=== PATIENT | female | born 2000 | race Caucasian/White ===

== ENCOUNTER 2023-07-14 08:10 | Emergency (ER) | payer BC | END 2023-07-14 09:10 | disposition home or self-care (01) | LOC: CC.ED 08:10 | DX: S93.401A Sprain of unspecified ligament of right ankle, initial encounter (principal); Z79.899 Other long term (current) drug therapy; X50.1XXA Overexertion from prolonged static or awkward postures, initial encounter; Y93.89 Activity, other specified | CPT/HCPCS: 73610-RT; 99283 ==

== ENCOUNTER 2023-09-18 20:00 | Emergency (ER) | payer BC ==
[2023-09-18 21:23] LABS: BASOPHILS ABSOLUTE AUTO 0.02 10^3/uL (0.00-0.50); BASOPHILS PERCENT AUTO 0.2 % (0-1); HEMATOCRIT 36.2 % (37.0-47.0); HEMOGLOBIN 11.5 g/dL (12.0-16.0); IMMATURE GRAN ABSOLUTE AUTO 0.01 10^3/uL (0.00-0.49); IMMATURE GRAN PERCENT AUTO 0.1 % (0.0-4.9); LYMPHOCYTES ABSOLUTE AUTO 2.72 10^3/uL (0.60-5.00); LYMPHOCYTES PERCENT AUTO 29.1 % (24-44); MEAN CORPUSCULAR HEMOGLOBIN 25.9 pg (27.0-32.0); MEAN CORPUSCULAR HGB CONC 31.8 g/dL (32.0-36.0); MEAN CORPUSCULAR VOLUME 81.5 fL (83.0-97.0); MONOCYTES ABSOLUTE AUTO 0.56 10^3/uL (0.00-1.50); NEUTROPHILS ABSOLUTE AUTO 6.04 x10^3/uL (1.80-8.00); NEUTROPHILS PERCENT AUTO 64.6 % (41-71); PLATELET COUNT,PLT 244 10^3/uL (150-400); RED BLOOD CELL COUNT 4.44 x10^6/uL (4.00-5.50); WHITE BLOOD CELL COUNT,WBC 9.4 10^3/uL (4.0-11.0)
[2023-09-18 21:44] LABS: ALBUMIN 3.6 g/dL (3.4-5.0); BILIRUBIN TOTAL 0.3 mg/dL (0.0-1.0); C-REACTIVE PROTEIN 2.57 mg/dL (<=0.50); CALCIUM 9.4 mg/dL (8.4-10.1); CREATININE 0.9 mg/dL (0.6-1.0); EST CRCL DRUG DOSING (CG) 104.23 mL/min; POTASSIUM,K 4.1 mEq/L (3.5-5.0); PROTEIN TOTAL,TP 8.1 g/dL (6.4-8.2)
[2023-09-18] MEDS: Iopamidol 755 Mg/ML 100 ML Bottle IVPUSH ONE (22:27)
== END 2023-09-19 00:40 | disposition home or self-care (01) ==
LOC: CC.ED 20:00
DX: M79.602 Pain in left arm (principal); G54.0 Brachial plexus disorders; E66.9 Obesity, unspecified; Z79.899 Other long term (current) drug therapy; Z68.38 Body mass index [BMI] 38.0-38.9, adult
CPT/HCPCS: 36415; 73206-LT; 80053; 85025; 85379; 86140; 99285; Q9967

== ENCOUNTER 2023-10-03 17:46 | Emergency (ER) | payer BC ==
[2023-10-03 17:54] VITALS: BP 139/94; PULSE 104
== END 2023-10-03 20:15 | disposition home or self-care (01) ==
LOC: CC.ED 17:46
DX: F41.8 Other specified anxiety disorders (principal); F06.34 Mood disorder due to known physiological condition with mixed features; F43.10 Post-traumatic stress disorder, unspecified; E66.9 Obesity, unspecified; Z79.899 Other long term (current) drug therapy
CPT/HCPCS: 99283